=== PATIENT | male | born 1990 | race African-American/Black ===

== ENCOUNTER 2018-05-13 10:57 | Emergency (ER) | payer SELFPAY ==
[~2018-05-13] VITALS: Ht 177.8 cm; Wt 56.7 kg
--- NOTE | 2018-05-13 11:47 | Emergency Room Report ---
History of Present Illness General Chief Complaint: General Complaint Source: Patient Present Illness HPI Patient is a 27-year-old male presented after increased nausea and vomiting. Patient presents having increased generalized weakness as well as dizziness. He reports having recent alcohol and cocaine use. Patient stated this was 3 days ago. Patient began having increased nausea since yesterday. He denies any chest discomfort or abdominal pain. He denies any severe headache. He denies any fever. He had been urinating normally. Allergies: Coded Allergies: No Known Allergies (Unverified , 05/13/18) Patient History Reviewed Nursing Documentation: PMH: Agreed; PSxH: Agreed Nursing Documentation-PM Past Medical History: No Stated History Review of Systems All Other Systems: negative except mentioned in HPI Physical Exam Vital Signs Date Time Temp Pulse Resp B/P (MAP) Pulse Ox O2 Delivery O2 Flow Rate FiO2 05/13/18 11:06 97.7 87 18 110/63 99 Room Air 97.7 Sp02 EP Interpretation: reviewed, normal General Appearance: normal inspection, no apparent distress, alert, GCS 15, mild distress Head: atraumatic ENT: normal ENT inspection, hearing grossly normal, normal voice Neck: normal inspection, full range of motion, supple, no bony tend Respiratory: normal inspection, lungs clear, normal breath sounds, no respiratory distress, no retraction, no wheezing Cardiovascular #1: regular rate, rhythm, no edema Gastrointestinal: normal inspection, normal bowel sounds, non tender, soft, no guarding, no hernia Genitourinary: no CVA tenderness Musculoskeletal: normal inspection, back normal, normal range of motion Neurologic: normal inspection, alert, oriented x3, responsive, digester hand III-XII nml as tested, speech normal Psychiatric: normal inspection, judgement/insight normal, mood/affect normal Skin: normal inspection, normal color, no rash Medical Decision Making Diagnostic Impression: Primary Impression: Substance abuse ER Course Patient presented for abdominal pain. Differential diagnoses included ischemic bowel, appendicitis, perforated viscus, abdominal aortic aneurysm, inferior myocardial infarction, viral gastroenteritis Patient has a benign exam and does not appear to require any further imaging or laboratory testing at this time. The patient was noted to have spontaneous improvement in his symptoms. Patient said he did not want any laboratory testing and wanted to go home.The patient is advised to follow up with primary care doctor in 1-2 days. Patient is advised to return if any worsening condition or if any changes in status that are concerning. This report is dictated with [employer] certified coder software which may occasionally lead to discrepancies related to use of this software. Last Vital Signs Date Time Temp Pulse Resp B/P (MAP) Pulse Ox O2 Delivery O2 Flow Rate FiO2 05/13/18 11:06 97.7 87 18 110/63 99 Room Air 97.7 Status: improved Disposition: HOME, SELF-CARE Condition: Stable Scripts Ondansetron (Zofran) 4 Mg Tablet 4 MG ORAL Q6H PRN for Nausea & Vomiting, #30 TAB 0 Refills Prov: Richard Lorenzo MD 05/13/18 Richard Lorenzo MD May 13, 2018 11:47
[2018-05-13 11:49] VITALS: BP 110/63
[2018-05-13] MEDS ORDERED: ZOFRAN4 MG ORAL (12:47)
[2018-05-13 12:52] VITALS: BP 114/69
== END 2018-05-13 12:52 | disposition home or self-care (01) ==
LOC: EMR 12:25
DX: F19.10 Other psychoactive substance abuse, uncomplicated (principal)
CPT/HCPCS: 99283